=== PATIENT | male | born 1985 | race Caucasian/White ===

== ENCOUNTER 2024-04-22 13:37 | Emergency (ER) | payer OTHER, SELFPAY ==
[2024-04-22 13:41] VITALS: BP 145/82; PULSE 83; RESP 18; TEMP 37.6; O2SAT 97; BMI 27.3
--- NOTE | 2024-04-22 13:55 | ED_ITS ---
HPI - General Adult General Chief complaint: Cough Stated complaint: run down, achy, stiff neck Time Seen by Provider: 04/22/24 13:45 History of Present Illness HPI narrative: 4 days been sick, back pain , abd pain, headache, chills, hot flashes, rash on arms and legs. no appetite, neck feels stiff. 38-year-old man presenting to the emergency department with 4 days of feeling sick. Seems to have begun with a rash that he thought was more like small pimples on his knees but it has spread more broadly. Occurring elsewhere on the extremities. Does not describe it is itchy. Generally achy particular with back pain. His neck feels stiff. He has had chills and feeling hot. Do not have recorded temperature. Headache. No particular exposures. It sounds like did a home COVID test which was negative. Is nauseated, poor appetite. Has discomfort in the subxiphoid/epigastric area that flares with deeper breath. Symptoms began with 2 days of diarrhea. He has been nauseated but not vomiting. 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 Denies recent alcohol ingestion. No travel, no ticks, no ill exposures. Revealed later apparently was seen recently in clinic/urgent care and has had a day and half of benzonatate and prednisone. No recent antibiotics. Related Data Home Medications ?Medication ?Instructions ?Recorded ?Confirmed benzonatate 200 mg capsule 200 mg PO 3XD PRN 04/22/24 04/22/24 prednisone 20 mg tablet 20 mg PO BID 04/22/24 04/22/24 Allergies Allergy/AdvReac Type Severity Reaction Status Date / Time No Known Drug Allergies Allergy Verified 04/22/24 21:58 Review of Systems Status of ROS: Reports: 6 or more systems reviewed and unremarkable except as noted in History and below [facility] Social History Smoking Status: Never smoker How often do you have a drink containing alcohol: never AUDIT-C Alcohol total score: 0 Non-prescribed substance use: denies use service: No Exam Narrative: Exam Narrative: Pleasant. Does appear quite fatigued. Skin is warm and dry. He has got darker erythematous macular papular eruptions of varying sizes and shapes over the extensor surface of the knees, the elbows and back of the upper arm, down by the ankles as well. Some scattered on the hands; the hypothenar prominence though has more of a callus type rash consistent with work I think. Not really over the torso or the face. Oropharynx is little sticky a without any lesions apparent. Neck is supple without lymphadenopathy. Skin is otherwise without jaundice. There appears to be mild scleral icterus. Flexing hips and extending legs without apparent difficulty. Other than reported headache would not appear to have meningeal signs. Cranial nerves 2-12 intact. Pupils are equal. Breathing is affected by small cough with inspiration. Lungs are clear. Splinting a little bit with deeper breathing. Part of this also inspires a little cough. Heart in regular rate and rhythm. Abdomen is mildly tender in the epigastrium. Const: Vital Signs, click to edit/add: Vital Signs - 24 hr 04/22/24 13:41 04/22/24 17:16 Temperature 99.6 F Pulse Rate [Pulse Oximeter] 83 68 Respiratory Rate 18 16 Blood Pressure [Ri t Upper Arm] 145/82 H 129/79 Pulse Oximetry 97 97 Oxygen Delivery Me thod Room Air Room Air Documenting provider has reviewed patient's vital signs: yes Course Vital Signs Vital signs: Initial Vital Signs Temperature 99.6 F 04/22/24 13:41 Temperature Source Temporal Artery Scan 04/22/24 13:41 Pulse Rate 83 04/22/24 13:41 Respiratory Rate 18 04/22/24 13:41 Blood Pressure 145/82 H 04/22/24 13:41 Blood Pressure Mean 103 04/22/24 13:41 Pulse Oximetry 97 04/22/24 13:41 Oxygen Delivery Method Room Air 04/22/24 13:41 Vital Signs Temperature 99.6 F 04/22/24 13:41 Pulse Rate 83 04/22/24 13:41 Respiratory Rate 18 04/22/24 13:41 Blood Pressure 145/82 H 04/22/24 13:41 Pulse Oximetry 97 04/22/24 13:41 Oxygen Delivery Method Room Air 04/22/24 13:41 Temperature 99.6 F 04/22/24 13:41 Pulse Rate 68 04/22/24 17:16 Respiratory Rate 16 04/22/24 17:16 Blood Pressure 129/79 04/22/24 17:16 Pulse Oximetry 97 04/22/24 17:16 Oxygen Delivery Method Room Air 04/22/24 17:16 Medications Administered Medications: Discontinued Medications Generic Name Dose Route Start Last Admin Trade Name Stella PRN Reason Stop Dose Admin Sodium Chloride 1,000 mls @ 1,000 mls/hr 04/22/24 14:07 04/22/24 14:49 0.9 % Sodium Chloride 1000 Ml IV 04/22/24 15:06 Infused .Q1H ONE Infusion Lactated Ringer's 1,000 mls @ 1,000 mls/hr 04/22/24 17:05 04/22/24 18:16 Lactated Ringers 1000 Ml IV 04/22/24 18:04 Infused .Q1H ONE Infusion Ketorolac Tromethamine 30 mg 04/22/24 14:07 04/22/24 14:48 Ketorolac 30 Mg/Ml Inj IVP 04/22/24 14:08 30 mg ONCE ONE Administration Ondansetron HCl 4 mg 04/22/24 14:07 04/22/24 14:48 Ondansetron 2 Mg/Ml Inj IVP 04/22/24 14:08 4 mg ONCE ONE Administration Medical Decision Making MDM Narrative Medical decision making narrative: Rash is somewhat atypical. Would screen for typical infectious etiology. Check labs. Affect symptom relief with IV fluids antiemetic and ketorolac. Would presume otherwise a nonspecific viral etiology to what are likely myalgias. Low-lying pneumonia? Rash seems inconsistent with Neisseria. Does not seem to have symptoms to suggest pancreatitis other than the tenderness in the epigastrium which might also be related to gallbladder or liver. Chest x-ray reviewed by me looks unremarkable. Labs return. White count is not elevated. Transaminases are moderately elevated. Discussing with colleague reminded of mycoplasma and Legionella associated rash and hepatitis potential, tick borne illnesses? Hepatitis a? However bilirubin also elevated with primarily direct component and elevation of alkaline phosphatase. Seems to be less infections and more obstructive. Tick- borne/vector borne illnesses are send out labs as is hepatitis panel and would not be available today regardless. Abdominal ultrasound per discussion with mannequin wig maker is unremarkable. Confirmed with radiology over-read MRCP? Have reached out to general surgery on-call for opinion. Pending this consultation. I have also discussed this case with our hospitalist. I observed him continuing to cough. Certainly there could be multiple disease going on. Might have atypical or other pneumonia not visualized in x-ray imaging. Will be ordering contrasted CT of the chest. If MRCP is necessary, might be able to do that yet tonight or provided vital stability could arrange to do this in the morning. Would also than follow-up for repeat liver labs as well as send out labs for vector borne illnesses and hepatitides panel. Discussed with GI. Pending at this time is CT chest read. Recommending follow-up before repeat transaminases/liver panel in a couple of days. As discussed with yet at on titers for EBV in CMV and hip attended these. Pending worsening labs consider other sendouts for tick or vector borne illnesses as noted above. Hold on MRCP at this point. I did review CT imaging. Radiology over-read as below CT of the chest with intravenous contrast (75 milliliters Isovue 370). FINDINGS: Airways: The trachea and central airways are clear. Lungs: Multiple (greater than 10) pulmonary nodules scattered throughout the bilateral lungs measuring up to 7 millimeters at the subpleural right lower lobe (3/66). Pleura: Trace bilateral pleural effusion. Lymph nodes: No bulky thoracic lymphadenopathy. Heart: Normal size. Aorta: Normal caliber. Pulmonary artery: Normal caliber of the main pulmonary artery. No large or central pulmonary embolism. Chest wall: 1.7 centimeter fat attenuation lesion in the musculature of the right lateral abdominal wall (probably the serratus anterior) compatible with a lipoma. Bones: There are osseous degenerative changes. Additional findings: Hepatosplenomegaly. IMPRESSION: 1. Multiple (greater than 10) nonspecific solid pulmonary nodules scattered throughout the lungs measuring up to 7 millimeters. If these nodules are incidental (ie there is no history of known malignancy), recommend a follow-up CT thorax in 3 months. 2. Hepatosplenomegaly. Discussed findings with Enrique of his chest CT. Wonder if these lung nodules, given his profession, might represent silicosis? See patient discharge plan for further discussion Lab Data Lab results reviewed: Yes I reviewed the patient's lab results Labs: Lab Results 04/22/24 04/22/24 04/22/24 Range/Units 14:19 15:36 15:38 WBC 7.49 (4.50-11.00) K/uL RBC 4.96 (4.30-5.90) m/uL Hgb 14.4 (13.5-17.5) gm/dL Hct 41.8 (37.0-53.0) % MCV 84 (80-100) fL MCH 29 (26-34) pg MCHC 34 (32-36) gm/dL RDW Coeff of Ale 12.0 (11.5-15.5) % Plt Count 183 (140-440) K/uL Neut % (Auto) 93.7 H (42.0-72.0) % Lymph % (Auto) 2.9 L (20-44) % [place] % (Auto) 2.4 (0.0-11.0) % Eos % (Auto) 0.8 (0.0-7.0) % Baso % (Auto) 0.1 (0.0-3.0) % Neut # (Auto) 7.00 (1.7-7.0) K/uL Lymph # (Auto) 0.20 L (0.90-2.90) K/uL [place] # (Auto) 0.20 (0.00-0.90) K/UL Eos # (Auto) 0.06 (0.00-0.50) K/uL Baso # (Auto) 0.01 (0.00-0.30) K/uL Abs Immat Gran (auto) 0.01 (0.00-0.30) K/uL Imm/Tot Granulo (auto) 0.1 % ESR 23 H (2-15) mm/hr INR 1.17 H (0.91-1.10) APTT 35 H (23-33) Seconds Sodium 132 L (135-149) mmol/L Potassium 3.9 (3.6-5.1) mmol/L Chloride 99 (96-114) mmol/L Carbon Dioxide 25 (20-32) mmol/L Anion Gap 8 (7-15) mEq/L BUN 14 (5-24) mg/dL Creatinine 0.6 (0.5-1.5) mg/dL Estimated Creat Clear 170.67 Estimated GFR 126 ml/min Glucose 130 H (60-115) mg/dL Calcium 8.4 (8.4-10.6) mg/dL Total Bilirubin 4.5 H (0.1-1.5) mg/dL Direct Bilirubin 3.1 H (0.0-0.5) mg/dL AST 107 H (12-35) U/L ALT 363 H (4-50) U/L Alkaline Phosphatase 234 H (40-150) U/L C-Reactive Protein 15.7 H (0.5-1.0) mg/dL Total Protein 6.3 (6.0-8.3) g/dL Albumin 3.9 (3.3-5.0) g/dL Lipase 38 (23-300) U/L Urine L. pneumophilia Ag (Negative) Urine Strep pneumoniae Ag (Negative) Acetaminophen < 10.0 L (10.0-30.0) ug/mL Ethyl Alcohol < 0.01 L (0.01-0.03) % SARS-CoV-2 (PCR) Negative SARS-CoV-2 (Negative) CMV IgG Ab 8.70 H (<=0.70) U/mL CMV IgM Ab <8.0 (<=29.9) AU/mL EBV Capsid Ag IgG Titer 94.4 H (0.0-21.9) U/mL EBV Capsid Ag IgM Ab <10.0 (0.0-43.9) U/mL EBV Early Antigen IgG 11.6 H (0.0-10.9) U/mL EBV Nuclear Ag Ab, IgG 96.9 H (0.0-21.9) U/mL Hepatitis A IgM Ab Negative (Negative) Hep Bs Antigen Negative (Negative) Hep B Core IgM Ab Negative (Negative) Hep C Ab Index (BONNIE) 0.04 IV Hep C Ab Interp BONNIE Negative (Negative) Hepatitis Interpret See Note Monoscreen Negative (Negative) Influenza Type A (PCR) Negative PCR FLU A (Negative) Influenza Type B (PCR) Negative PCR FLU B (Negative) RSV (PCR) Negative PCR RSV (Negative) Lab Acknowledgement Test Added Test Added 04/22/24 04/22/24 04/22/24 Range/Units 15:50 19:49 20:07 WBC (4.50-11.00) K/uL RBC (4.30-5.90) m/uL Hgb (13.5-17.5) gm/dL Hct (37.0-53.0) % MCV (80-100) fL MCH (26-34) pg MCHC (32-36) gm/dL RDW Coeff of Ale (11.5-15.5) % Plt Count (140-440) K/uL Neut % (Auto) (42.0-72.0) % Lymph % (Auto) (20-44) % [place] % (Auto) (0.0-11.0) % Eos % (Auto) (0.0-7.0) % Baso % (Auto) (0.0-3.0) % Neut # (Auto) (1.7-7.0) K/uL Lymph # (Auto) (0.90-2.90) K/uL [place] # (Auto) (0.00-0.90) K/UL Eos # (Auto) (0.00-0.50) K/uL Baso # (Auto) (0.00-0.30) K/uL Abs Immat Gran (auto) (0.00-0.30) K/uL Imm/Tot Granulo (auto) % ESR (2-15) mm/hr INR (0.91-1.10) APTT (23-33) Seconds Sodium (135-149) mmol/L Potassium (3.6-5.1) mmol/L Chloride (96-114) mmol/L Carbon Dioxide (20-32) mmol/L Anion Gap (7-15) mEq/L BUN (5-24) mg/dL Creatinine (0.5-1.5) mg/dL Estimated Creat Clear Estimated GFR ml/min Glucose (60-115) mg/dL Calcium (8.4-10.6) mg/dL Total Bilirubin (0.1-1.5) mg/dL Direct Bilirubin (0.0-0.5) mg/dL AST (12-35) U/L ALT (4-50) U/L Alkaline Phosphatase (40-150) U/L C-Reactive Protein (0.5-1.0) mg/dL Total Protein (6.0-8.3) g/dL Albumin (3.3-5.0) g/dL Lipase (23-300) U/L Urine L. pneumophilia Ag L. pneumo Negative (Negative) Urine Strep pneumoniae Ag S. pneumo Negative (Negative) Acetaminophen (10.0-30.0) ug/mL Ethyl Alcohol (0.01-0.03) % SARS-CoV-2 (PCR) (Negative) CMV IgG Ab (<=0.70) U/mL CMV IgM Ab (<=29.9) AU/mL EBV Capsid Ag IgG Titer (0.0-21.9) U/mL EBV Capsid Ag IgM Ab (0.0-43.9) U/mL EBV Early Antigen IgG (0.0-10.9) U/mL EBV Nuclear Ag Ab, IgG (0.0-21.9) U/mL Hepatitis A IgM Ab (Negative) Hep Bs Antigen (Negative) Hep B Core IgM Ab (Negative) Hep C Ab Index (BONNIE) IV Hep C Ab Interp BONNIE (Negative) Hepatitis Interpret Monoscreen (Negative) Influenza Type A (PCR) (Negative) Influenza Type B (PCR) (Negative) RSV (PCR) (Negative) Lab Acknowledgement Test Added Test Added Discharge Plan Discharge Clinical Impression: Hepatitis, Rash, Multiple pulmonary nodules Patient Disposition: Home, Self-Care Condition: Stable Additional Instructions: Stay well-hydrated. You received 1 L of normal saline and another of lactated Ringer's here. Recommending follow-up in 2-3 days to recheck your labs. Would schedule in primary care if possible. Would check a liver panel at that time. Other pending labs are titers for Peggy Bar and cytomegalovirus as well as a hepatitides panel. Would continue with your prednisone regular dosing and benzonatate then as needed. [place] from [facility] should help with pain that might be preventing sleep. Generally can take up to 1000 mg of acetaminophen or up to 800 mg of ibuprofen per dose. Alternative to the ibuprofen might be up to 500 mg naproxen 2 times daily. Remember that each tablet of [place] contains 325 mg of acetaminophen. Regarding your pulmonary nodules -- recommendations are to reimage in about 3 months. Be seen otherwise for uncontrolled pain, escalating fever, unusual somnolence/altered mental status, increasing shortness of breath. Prescriptions: No Action benzonatate 200 mg capsule 200 mg PO 3XD PRN prednisone 20 mg tablet 20 mg PO BID Follow Up/Referrals: Provider,Not a Local [Primary Care Provider] - Stand Alone Forms: [facility] Mobile Info Instructions
[2024-04-22] MEDS: 0.9 % SODIUM CHLORIDE 1000 ml 1,000 ML IV (14:00)
--- NOTE | 2024-04-22 14:08 | CRLHL7_ITS ---
For Patients: As a result of the Century Cures Act, medical imaging exams and procedure reports are released immediately into your electronic medical record. You may view this report before your referring provider. If you have questions, please contact your health care provider. INDICATION: Cough. TECHNIQUE: Chest 1 views. COMPARISON: None. FINDINGS: Cardiovascular and mediastinum: Heart size and vasculature are normal in caliber and appearance. Lungs and pleural spaces: Lungs are clear. No sign of infiltrate or mass. No sign of pleural effusion. No pneumothorax. Bones and soft tissues: No significant findings. IMPRESSION: No acute or significant findings. Dictated by Quinten Ayala MD @ 04/22/2024 2:34:45 PM (Electronically Signed)
[2024-04-22 14:33] LABS: Basophils Absolute Auto 0.01 K/uL (0.00-0.30); Basophils Percent Auto 0.1 % (0.0-3.0); Eosinophils Absolute Auto 0.06 K/uL (0.00-0.50); Eosinophils Percent Auto 0.8 % (0.0-7.0); Hematocrit 41.8 % (37.0-53.0); Hemoglobin* 14.4 gm/dL (13.5-17.5); Immature Granulocytes Abs Auto 0.01 K/uL (0.00-0.30); Immature Granulocytes Pct Auto 0.1 %; Lymphocytes Percent Auto 2.9 % (20-44); Mean Corpuscular HGB Conc 34 gm/dL (32-36); Mean Corpuscular Hemoglobin 29 pg (26-34); Mean Corpuscular Volume 84 fL (80-100); Monocytes Percent Auto 2.4 % (0.0-11.0); Neutrophils Percent Auto 93.7 % (42.0-72.0); Platelet Count* 183 K/uL (140-440); Red Blood Count 4.96 m/uL (4.30-5.90); White Blood Count* 7.49 K/uL (4.50-11.00)
[2024-04-22] MEDS: KETOROLAC 30 MG/ML inj IVP (14:48)
[2024-04-22] MEDS: ONDANSETRON 2 MG/ML inj 4 MG IVP (14:48)
[2024-04-22 14:54] LABS: Slide Review Reflex No
[2024-04-22 15:08] LABS: PCR FLU A Negative PCR FLU A (Negative); PCR FLU B Negative PCR FLU B (Negative); PCR RSV Negative PCR RSV (Negative); SARS PCR* Negative SARS-CoV-2 (Negative)
[2024-04-22 15:23] LABS: Albumin* 3.9 g/dL (3.3-5.0); Chloride* 99 mmol/L (96-114); Potassium* 3.9 mmol/L (3.6-5.1); Sodium* 132 mmol/L (135-149)
[2024-04-22 15:25] LABS: Creatinine* 0.6 mg/dL (0.5-1.5); Est. Creatinine Clearance* 170.67; Estimated Glomerular Filt Rate 126 ml/min
[2024-04-22 15:26] LABS: Alanine Aminotransferase* 363 U/L (4-50); Alkaline Phosphatase* 234 U/L (40-150); Anion Gap 8 mEq/L (7-15); Aspartate Amino Transferase* 107 U/L (12-35); Bilirubin Direct* 3.1 mg/dL (0.0-0.5); Bilirubin Total* 4.5 mg/dL (0.1-1.5); Blood Urea Nitrogen* 14 mg/dL (5-24); Carbon Dioxide* 25 mmol/L (20-32); Total Protein* 6.3 g/dL (6.0-8.3)
[2024-04-22 15:27] LABS: Calcium* 8.4 mg/dL (8.4-10.6); Glucose* 130 mg/dL (60-115)
[2024-04-22 15:44] LABS: C Reactive Protein* 15.7 mg/dL (0.5-1.0)
[2024-04-22 15:58] LABS: Lipase* 38 U/L (23-300)
[2024-04-22 16:06] LABS: Erythrocyte SedimentationRate* 23 mm/hr (2-15); Mono Screen* Negative (Negative)
[2024-04-22 16:08] LABS: Ethanol* < 0.01 % (0.01-0.03)
--- NOTE | 2024-04-22 16:08 | CRLHL7_ITS ---
For Patients: As a result of the Century Cures Act, medical imaging exams and procedure reports are released immediately into your electronic medical record. You may view this report before your referring provider. If you have questions, please contact your health care provider. INDICATION: Epigastric pain. COMPARISON: None. TECHNIQUE: Real time boo scale imaging and color Doppler analysis was performed of the right upper quadrant. FINDINGS: Liver: The liver measures approximately 18 cm in length. Normal echogenicity. No focal liver lesions identified. Gallbladder: No stones or sludge. No wall thickening or pericholecystic fluid. Negative sonographic Cordero sign. Bile ducts: The common bile duct measures 5 mm in diameter. Pancreas: Normal where seen. Right kidney: The right kidney measures 12.8 cm in length. No hydronephrosis, calculus, or mass. Vascular: Normal caliber proximal abdominal aorta. The IVC and main portal vein appear patent. IMPRESSION: Unremarkable exam. Dictated by Baylee Oneal MD @ 04/22/2024 6:06:47 PM (Electronically Signed)
[2024-04-22 17:16] VITALS: BP 129/79; PULSE 68; RESP 16; O2SAT 97
[2024-04-22] MEDS: LACTATED RINGERS 1000 ML 1,000 ML IV (17:16)
[2024-04-22 17:32] LABS: Legionella pneumo Ag Urine L. pneumo Negative (Negative); S pneumo Ag Urine S. pneumo Negative (Negative)
--- NOTE | 2024-04-22 18:40 | CRLHL7_ITS ---
For Patients: As a result of the Century Cures Act, medical imaging exams and procedure reports are released immediately into your electronic medical record. You may view this report before your referring provider. If you have questions, please contact your health care provider. INDICATION: Cough, chills, and hepatitis COMPARISON: None. TECHNIQUE: CT of the chest with intravenous contrast (75 milliliters Isovue 370). FINDINGS: Airways: The trachea and central airways are clear. Lungs: Multiple (greater than 10) pulmonary nodules scattered throughout the bilateral lungs measuring up to 7 millimeters at the subpleural right lower lobe (3/66). Pleura: Trace bilateral pleural effusion. Lymph nodes: No bulky thoracic lymphadenopathy. Heart: Normal size. Aorta: Normal caliber. Pulmonary artery: Normal caliber of the main pulmonary artery. No large or central pulmonary embolism. Chest wall: 1.7 centimeter fat attenuation lesion in the musculature of the right lateral abdominal wall (probably the serratus anterior) compatible with a lipoma. Bones: There are osseous degenerative changes. Additional findings: Hepatosplenomegaly. IMPRESSION: 1. Multiple (greater than 10) nonspecific solid pulmonary nodules scattered throughout the lungs measuring up to 7 millimeters. If these nodules are incidental (ie there is no history of known malignancy), recommend a follow-up CT thorax in 3 months. 2. Hepatosplenomegaly. Please note that all CT scans at this facility use dose modulation, iterative reconstruction, and/or weight-based dosing when appropriate to reduce radiation dose to as low as reasonably achievable. Dictated by Francis Ferrer MD @ 04/22/2024 8:15:27 PM (Electronically Signed)
[2024-04-22 20:12] LABS: INR 1.17 (0.91-1.10); Partial Thromboplastin Time* 35 Seconds (23-33); Prothrombin Time 15.6 Seconds
[2024-04-22 20:13] LABS: Acetaminophen* < 10.0 ug/mL (10.0-30.0)
[2024-04-24 20:11] LABS: Hep A Ab, IgM Negative (Negative); Hep B Core Ab, IgM Negative (Negative); Hep B Surface Antigen Negative (Negative); Hep C Ab by CIA Index 0.04 IV; Hep C Ab by CIA Interp Negative (Negative)
[2024-04-24 23:37] LABS: CMV Antibody IgM <8.0 AU/mL (<=29.9)
[2024-04-25 00:39] LABS: EBV Ab Nuclear Ag IgG 96.9 U/mL (0.0-21.9); EBV Ab Viral Capsid Ag IgG 94.4 U/mL (0.0-21.9); EBV Ab Viral Capsid Ag IgM <10.0 U/mL (0.0-43.9); EBV Ab to Early (D) Ag IgG 11.6 U/mL (0.0-10.9)
== END 2024-04-22 20:38 | disposition home or self-care (01) ==
PROVIDERS: Emergency Provider Family Medicine
DX: R21 Rash and other nonspecific skin eruption (principal); K75.9 Inflammatory liver disease, unspecified; R91.1 Solitary pulmonary nodule
CPT/HCPCS: 36415; 71045; 71260; 76705; 80048; 80074; 80076; 80143; 82077; 83690; 85025; 85610; 85651; 85730; 86140; 86308; 86644; 86645; 86663; 86664; 86665; 87109; 87449; 87631; 87798; 87899; 96374; 96375; 99284; J1885; J2405; J7030; J7120; Q9967